=== PATIENT | male | born 1995 | race Two or more races ===

== ENCOUNTER 2023-11-28 17:01 | Emergency (ER) | payer BC, OTHER ==
[~2023-11-28] VITALS: Ht 172.7 cm; Wt 78.8 kg
[2023-11-28 18:43] VITALS: BP 106/67; PULSE 100; RESP 16; TEMP 100.4; O2SAT 97
[2023-11-28] MEDS ORDERED: IBUPROFEN 800 MG TAB PO ONE (18:45)
[2023-11-28] MEDS ORDERED: CEPH500C PO (18:48)
== END 2023-11-28 19:09 | disposition home or self-care (01) ==
LOC: ER 17:06
DX: L03.116 Cellulitis of left lower limb (principal); R42 Dizziness and giddiness; Z88.1 Allergy status to other antibiotic agents